=== PATIENT | male | born 1970 | race Caucasian/White ===

== ENCOUNTER 2017-08-23 23:10 | Emergency (ER) | payer BC ==
[2017-08-23 23:16] VITALS: BP 124/70; PULSE 93; TEMP 97.8; BMI 38.0
--- NOTE | 2017-08-23 23:50 | PDOC ---
History of Present Illness - General Chief Complaint: Respiratory Stated Complaint: COLD SYMPTOMS Time Seen by Provider: 08/23/17 23:37 History Source: Patient Exam Limitations: No Limitations - History of Present Illness Initial Comments: 08/24/17 00:21 47-year-old male history of HIV 8 years presents to the emergency department complaining of a nonproductive cough 2 weeks without fever, chills, nausea/ vomiting, headache, dizziness, lightheadedness, visual disturbance, sore throat , difficulty swallowing, facial pain, neck stiffness/pain, back pains, chest pain, shortness of breath, abdominal pains, flank pains, urinary symptoms, ext numbness or tingling sensation. Pt had viral load and CD4 count check and says it was fine. Timing/Duration: reports: other ([id number]) Past History - Past Medical History Allergies/Adverse Reactions: Allergies Allergy/AdvReac Type Severity Reaction Status Date / Time No Known Allergies Allergy Verified 08/23/17 23:15 Home Medications: Ambulatory Orders Atazanavir [Reyataz -] 300 mg PO DAILY@0800 #0 capsule 01/25/12 Abacavir Sulfate/Lamivudine [Epzicom -] 1 tab PO DAILY 11/14/12 Ritonavir [Norvir] 100 mg PO DAILY 11/14/12 Guaifenesin AC [Robitussin AC] 10 ml PO Q4H PRN #100 ml 03/09/15 Albuterol Sulfate Inhaler - [Ventolin HFA Inhaler -] 1 - 2 inh PO Q4H PRN #1 inhaler 09/11/16 Azithromycin 250 mg PO DAILY #4 tablet 09/11/16 Polymyxin B Sulf/Trimethoprim [Polymyxin B-Tmp Eye Drops] 1 ml OP Q4H #1 bottle 09/11/16 Azithromycin [Zithromax -] 250 mg PO UTDICT #6 tab 08/23/17 Anemia: No Asthma: No Cancer: No Cardiac Disorders: No CVA: No COPD: No CHF: No Dementia: No Diabetes: No GI Disorders: No Disorders: No HTN: No Hypercholesterolemia: No Liver Disease: No Seizures: No Thyroid Disease: No - Surgical History Abdominal Surgery: No Appendectomy: No Cardiac Surgery: No Cholecystectomy: No Lung Surgery: No Neurologic Surgery: No Orthopedic Surgery: No - Immunization History Immunization Up to Date: Yes - Suicide/Smoking/Psychosocial Hx Smoking Status: No Smoking History: Never smoked Have you smoked in the past 12 months: No Number of Cigarettes Smoked Daily: 0 Hx Alcohol Use: No Drug/Substance Use Hx: No Substance Use Type: None Hx Substance Use Treatment: No Respiratory Specific PMHX - Complaint Specific PMHX Pneumonia: Yes Review of Systems - Review of Systems Able to Perform ROS?: Yes Comments:: 08/24/17 00:16 CONSTITUTIONAL: Absent: fever, chills, diaphoresis, generalized weakness, malaise, loss of appetite HEENT: Absent: rhinorrhea, nasal congestion, throat pain, throat swelling, difficulty swallowing, mouth swelling, ear pain, eye pain, visual Changes CARDIOVASCULAR: Absent: chest pain, loss of consciousness, palpitations, irregular heart rate, peripheral edema RESPIRATORY: Absent: cough, shortness of breath, dyspnea with exertion, orthopnea, wheezing, stridor, hemoptysis GASTROINTESTINAL: Absent: abdominal pain, abdominal distension, nausea, vomiting, diarrhea, constipation, melena, hematochezia GENITOURINARY: Absent: dysuria, frequency, urgency, hesitancy, hematuria, flank pain, genital pain MUSCULOSKELETAL: Absent: myalgia, arthralgia, joint swelling SKIN: Absent: rash, itching, pallor HEMATOLOGIC/IMMUNOLOGIC: Absent: easy bleeding, easy bruising, lymphadenopathy, frequent infections ENDOCRINE: Absent: unexplained weight gain, unexplained weight loss, heat intolerance, cold intolerance NEUROLOGIC: Absent: headache, focal weakness or paresthesias, dizziness, unsteady gait, seizure, mental status changes, bladder or bowel incontinence PSYCHIATRIC: Absent: anxiety, depression, suicidal or homicidal ideation, hallucinations. Is the patient limited B[place]ian proficient: No *Physical Exam - Vital Signs Last Vital Signs Temp Pulse Resp BP Pulse Ox 97.8 F 93 H 18 124/70 97 08/23/17 23:13 08/23/17 23:13 08/23/17 23:13 08/23/17 23:13 08/23/17 23:13 - Physical Exam Comments: 08/24/17 00:17 GENERAL: Well developed, well nourished. Awake and alert. No acute distress. HEENT: Normocephalic, atraumatic. PERRLA, EOMI. No conjunctival pallor. Sclera are non- icteric. Moist mucous membranes. Oropharynx is clear. NECK: Supple. Full ROM. No JVD. Carotid pulses 2+ and symmetric, without bruits. No thyromegaly. No lymphadenopathy. CARDIOVASCULAR: Regular rate and rhythm. No murmurs, rubs, or gallops. Distal pulses are 2+ and symmetric. PULMONARY: No evidence of respiratory distress. Lungs clear to auscultation bilaterally. No wheezing, rales or rhonchi. ABDOMINAL: Soft. Non-tender. Non-distended. No rebound or guarding. No organomegaly. Normoactive bowel sounds. MUSCULOSKELETAL Normal range of motion at all joints. No bony deformities or tenderness. No CVA tenderness. EXTREMITIES: No cyanosis. No clubbing. No edema. No calf tenderness. SKIN: Warm and dry. Normal capillary refill. No rashes. No jaundice. NEUROLOGICAL: Alert, awake, appropriate. Cranial nerves 2-12 intact. No deficits to light touch and temperature in face, upper extremities and lower extremities. No motor deficits in the in face, upper extremities and lower extremities. Normoreflexic in the upper and lower extremities. Normal speech. Toes are down- going bilaterally. Gait is normal without ataxia. PSYCHIATRIC: Cooperative. Good eye contact. Appropriate mood and affect. ED Treatment Course - RADIOLOGY Radiograph Interpretation: 08/24/17 00:28 CXR 2v NAD compared to 09/11/2016 *DC/Admit/Observation/Transfer Diagnosis at time of Disposition: Bronchitis - Discharge Dispostion Condition at time of disposition: Stable Admit: No - Prescriptions Prescriptions: Azithromycin [Zithromax -] 250 mg PO UTDICT #6 tab - Referrals Referrals: Jeremy Weller MD [Primary Care Provider] - - Patient Instructions Printed Discharge Instructions: DI for Acute Bronchitis Additional Instructions: Increase fluids Rest Robitussin Over the counter Return to the ER for severe/persistent/worsening symptoms - Post Discharge Activity
== END 2017-08-24 00:36 | disposition home or self-care (01) ==
LOC: JER 23:10
DX: J40 Bronchitis, not specified as acute or chronic (principal); Z21 Asymptomatic human immunodeficiency virus [HIV] infection status
CPT/HCPCS: 71020-TC; 99282-25

== ENCOUNTER 2017-12-22 04:09 | Emergency (ER) | payer BC ==
[2017-12-22] MEDS ORDERED: AZITHROMYCIN 250 MG TABLET PO ONE (04:24)
--- NOTE | 2017-12-22 04:24 | PDOC ---
History of Present Illness - General Stated Complaint: COUGH,LOW BACK PAIN Time Seen by Provider: 12/22/17 04:21 History Source: Patient - History of Present Illness Initial Comments: 12/22/17 04:32 Best Contact: Pmhx: HIV since 2008 (sexual transmission) Pshx:N/A Allergies:NKDA 47-year-old male presents to the emergency department complaining of intermittent productive cough with mid back pain 3 days without fever, chills, nausea/vomiting, headache, dizziness, lightheadedness, chest pain, shortness of breath, abdominal pains, flank pains, urinary symptoms. Patient denies exacerbating or alleviating factors. Patient denies taking anything for his cough. Patient's last CD4 count 2 weeks ago and was above 600. Patient has had no complications with his HIV Past History - Past Medical History Allergies/Adverse Reactions: Allergies Allergy/AdvReac Type Severity Reaction Status Date / Time No Known Allergies Allergy Verified 08/23/17 23:15 Home Medications: Ambulatory Orders Atazanavir [Reyataz -] 300 mg PO DAILY@0800 #0 capsule 01/25/12 Abacavir Sulfate/Lamivudine [Epzicom -] 1 tab PO DAILY 11/14/12 Ritonavir [Norvir] 100 mg PO DAILY 11/14/12 Guaifenesin AC [Robitussin AC] 10 ml PO Q4H PRN #100 ml 03/09/15 Albuterol Sulfate Inhaler - [Ventolin HFA Inhaler -] 1 - 2 inh PO Q4H PRN #1 inhaler 09/11/16 Azithromycin 250 mg PO DAILY #4 tablet 09/11/16 Polymyxin B Sulf/Trimethoprim [Polymyxin B-Tmp Eye Drops] 1 ml OP Q4H #1 bottle 09/11/16 Azithromycin [Zithromax -] 250 mg PO UTDICT #6 tab 08/23/17 Anemia: No Asthma: No Cancer: No Cardiac Disorders: No CVA: No COPD: No CHF: No Dementia: No Diabetes: No GI Disorders: No Disorders: No HTN: No Hypercholesterolemia: No Liver Disease: No Seizures: No Thyroid Disease: No - Surgical History Abdominal Surgery: No Appendectomy: No Cardiac Surgery: No Cholecystectomy: No Lung Surgery: No Neurologic Surgery: No Orthopedic Surgery: No - Immunization History Immunization Up to Date: Yes - Suicide/Smoking/Psychosocial Hx Smoking Status: No Smoking History: Never smoked Have you smoked in the past 12 months: No Number of Cigarettes Smoked Daily: 0 Hx Alcohol Use: No Drug/Substance Use Hx: No Substance Use Type: None Hx Substance Use Treatment: No Respiratory Specific PMHX - Complaint Specific PMHX Pneumonia: Yes Review of Systems - Review of Systems Able to Perform ROS?: Yes Comments:: 12/22/17 04:32 CONSTITUTIONAL: Absent: fever, chills, diaphoresis, generalized weakness, malaise, loss of appetite HEENT: Absent: rhinorrhea, nasal congestion, throat pain, throat swelling, difficulty swallowing, mouth swelling, ear pain, eye pain, visual Changes CARDIOVASCULAR: Absent: chest pain, loss of consciousness, palpitations, irregular heart rate, peripheral edema RESPIRATORY: +cough Absent: shortness of breath, dyspnea with exertion, orthopnea, wheezing, stridor , hemoptysis GASTROINTESTINAL: Absent: abdominal pain, abdominal distension, nausea, vomiting, diarrhea, constipation, melena, hematochezia GENITOURINARY: Absent: dysuria, frequency, urgency, hesitancy, hematuria, flank pain, genital pain MUSCULOSKELETAL: Absent: myalgia, arthralgia, joint swelling SKIN: Absent: rash, itching, pallor HEMATOLOGIC/IMMUNOLOGIC: Absent: easy bleeding, easy bruising, lymphadenopathy, frequent infections ENDOCRINE: Absent: unexplained weight gain, unexplained weight loss, heat intolerance, cold intolerance NEUROLOGIC: Absent: headache, focal weakness or paresthesias, dizziness, unsteady gait, seizure, mental status changes, bladder or bowel incontinence PSYCHIATRIC: Absent: anxiety, depression, suicidal or homicidal ideation, hallucinations. Is the patient limited Panamanian proficient: No *Physical Exam - Physical Exam Comments: 12/22/17 04:31 GENERAL: Well developed, well nourished. Awake and alert. No acute distress. HEENT: Normocephalic, atraumatic. PERRLA, EOMI. No conjunctival pallor. Sclera are non- icteric. Moist mucous membranes. Oropharynx is clear. NECK: Supple. Full ROM. No JVD. Carotid pulses 2+ and symmetric, without bruits. No thyromegaly. No lymphadenopathy. CARDIOVASCULAR: Regular rate and rhythm. No murmurs, rubs, or gallops. Distal pulses are 2+ and symmetric. PULMONARY: No evidence of respiratory distress. Lungs clear to auscultation bilaterally. No wheezing, rales or rhonchi. ABDOMINAL: Soft. Non-tender. Non-distended. No rebound or guarding. No organomegaly. Normoactive bowel sounds. MUSCULOSKELETAL Normal range of motion at all joints. No bony deformities or tenderness. No CVA tenderness. EXTREMITIES: No cyanosis. No clubbing. No edema. No calf tenderness. SKIN: Warm and dry. Normal capillary refill. No rashes. No jaundice. ED Treatment Course - RADIOLOGY Radiograph Interpretation: 12/22/17 04:36 [employer]ICE 2v NAD *DC/Admit/Observation/Transfer Diagnosis at time of Disposition: Acute bronchitis Qualifiers: Bronchitis organism: unspecified organism Qualified Code(s): J20.9 - Acute bronchitis, unspecified - Discharge Dispostion Condition at time of disposition: Stable Admit: No - Referrals Referrals: Jeremy Maria MD [Primary Care Provider] - - Patient Instructions Printed Discharge Instructions: DI for Acute Bronchitis Additional Instructions: Rest Tylenol alternating with Motrin as needed every 6 hours [id number] supportive care/example: Robitussin or Mucinex Zithromax prescription until completion Follow up with your physician within 48 hours Return back to the emergency department for severe/persistent/worsening or concerning symptoms - Post Discharge Activity
[2017-12-22] MEDS ORDERED: AZITHROMYCIN 500 MG TABLET ONE (04:42)
[2017-12-22 06:12] VITALS: BP 122/85; PULSE 81; TEMP 98.7; BMI 37.6
[2017-12-25] MEDS ORDERED: IBUPROFEN 600 MG TABLET (FP) PO ONE (17:51)
== END 2017-12-22 05:40 | disposition home or self-care (01) ==
LOC: JER 04:09
DX: J20.9 Acute bronchitis, unspecified (principal); Z21 Asymptomatic human immunodeficiency virus [HIV] infection status
CPT/HCPCS: 71046-TC-FY; 99282-25

== ENCOUNTER 2018-09-30 22:57 | Emergency (ER) | payer BC ==
[2018-09-30 23:21] VITALS: BP 114/69; PULSE 87; TEMP 98.2; BMI 38.0
--- NOTE | 2018-10-01 02:34 | PDOC ---
History of Present Illness - General Chief Complaint: Cold Symptoms Stated Complaint: COUGH Time Seen by Provider: 10/01/18 01:13 History Source: Patient Exam Limitations: No Limitations - History of Present Illness Timing/Duration: reports: week Severity: reports: moderate Possible Cause: Yes: occasional episodes Associated Symptoms: reports: cough, nasal congestion Past History - Past Medical History Allergies/Adverse Reactions: Allergies Allergy/AdvReac Type Severity Reaction Status Date / Time No Known Allergies Allergy Verified 09/30/18 23:21 Home Medications: Ambulatory Orders Atazanavir [Reyataz -] 300 mg PO DAILY@0800 #0 capsule 01/25/12 Abacavir Sulfate/Lamivudine [Epzicom -] 1 tab PO DAILY 11/14/12 Ritonavir [Norvir] 100 mg PO DAILY 11/14/12 Albuterol Sulfate Inhaler - [Ventolin HFA Inhaler -] 1 - 2 inh PO Q4H PRN #1 inhaler 09/11/16 Anemia: No Asthma: No Cancer: No Cardiac Disorders: No CVA: No COPD: No CHF: No Dementia: No Diabetes: No GI Disorders: No Disorders: No HTN: No Hypercholesterolemia: No Liver Disease: No Seizures: No Thyroid Disease: No - Surgical History Abdominal Surgery: No Appendectomy: No Cardiac Surgery: No Cholecystectomy: No Lung Surgery: No Neurologic Surgery: No Orthopedic Surgery: No - Immunization History Immunization Up to Date: Yes - Suicide/Smoking/Psychosocial Hx Smoking Status: No Smoking History: Never smoked Have you smoked in the past 12 months: No Number of Cigarettes Smoked Daily: 0 Information on smoking cessation initiated: No Hx Alcohol Use: No Drug/Substance Use Hx: No Substance Use Type: None Hx Substance Use Treatment: No Respiratory Specific PMHX - Complaint Specific PMHX Pneumonia: Yes Review of Systems - Review of Systems Able to Perform ROS?: Yes Is the patient limited [place]an proficient: No Constitutional: No: Symptoms Reported, See HPI, Chills, Diaphoresis, Fever, Loss of Appetite, Malaise, Night Sweats, Weakness, Weight Stable, Unintentional Wgt. Loss, Unexplained wgt Loss, Other HEENTM: Yes: Nose Congestion Respiratory: Yes: Cough Cardiac (ROS): No: Symptoms Reported, See HPI, Chest Pain, Edema, Irregular Heart Rate, Lightheadedness, Palpitations, Syncope, Chest Tightness, Other ABD/GI: No: Symptoms Reported, See HPI, Abdominal Distended, Abd. Pain w/ defecation, Blood Streaked Bowels, Constipated, Diarrhea, Difficulty Swallowing , Nausea, Poor Appetite, Poor Fluid Intake, Rectal Bleeding, Vomiting, Indigestion, Abdominal cramping, Tarry Stools, Other : No: Symptoms Reported, See HPI, Burning, Dysuria, Discharge, Frequency, Flank Pain, Hematuria, Incontinence, Pain, Urgency, Testicular Mass, Testicular Swelling, Lesions, Testicular Pain, Other Musculoskeletal: Yes: Other (chest wall pian) Integumentary: No: Symptoms Reported, See HPI, Bruising, Change in Color, Change in Hair/Nails, Dryness, Erythema, Flushing, Lesions, Lumps, Pallor, Pruritus, Rash, Sweating, Other Neurological: No: Symptoms reported, See HPI, Headache, Numbness, Paresthesia, Pre-Existing Deficit, Seizure, Tingling, Tremors, Weakness, Unsteady Gait, Ataxia, Dizziness, Other Psychiatric: No: Anxiety, Depression, Frequent Crying, Stressors, Sleep Pattern Change, Emotional Problems, Mood Swings, Change in Appetite, Other Endocrine: No: Symptoms Reported, See HPI, Excessive Sweating, Flushing, Intolerance to Cold, Intolerance to Heat, Increased Hunger, Increased Thirst, Increased Urine, Unexplained Weight Gain, Unexplained Weight Loss, Change in Weight, Other Hematologic/Lymphatic: No: Symptoms Reported, See HPI, Anemia, Blood Clots, Easy Bleeding, Easy Bruising, Bleeding Diathesis, Lymph Node Abnormalities, Swollen Glands, Other *Physical Exam - Vital Signs Last Vital Signs Temp Pulse Resp BP Pulse Ox 98.2 F 87 18 114/69 100 09/30/18 23:19 09/30/18 23:19 09/30/18 23:19 09/30/18 23:19 09/30/18 23:19 - Physical Exam General Appearance: Yes: Nourished, Appropriately Dressed HEENT: positive: Nasal Congestion, Rhinorrhea Neck: positive: Supple Respiratory/Chest: positive: Lungs Clear Cardiovascular: positive: Regular Rhythm, Regular Rate Gastrointestinal/Abdominal: positive: Soft Musculoskeletal: positive: Normal Inspection Extremity: positive: Normal Inspection, Normal Range of Motion Integumentary: positive: Normal Color, Warm Neurologic: positive: Fully Oriented, Alert, Motor Strength 5/5 Moderate Sedation - Procedure Monitoring Vital Signs: Procedure Monitoring Vital Signs Temperature 98.2 F 09/30/18 23:19 Pulse Rate 87 09/30/18 23:19 Respiratory Rate 18 09/30/18 23:19 Blood Pressure 114/69 09/30/18 23:19 O2 Sat by Pulse Oximetry (%) 100 09/30/18 23:19 Medical Decision Making - Medical Decision Making 10/01/18 02:47 48-year-old male presents with complaint of 1 week of coughing, nasal congestion. He denies any significant past medical history He has stable vital signs. He is not febrile, he is not hypoxic On exam, he has no wheezing and is not in any acute respiratory distress. Differential includes influenza, pneumonia, bronchitis, viral syndrome-common cold cxr ,flu swab pending 10/01/18 02:55 *DC/Admit/Observation/Transfer - Referrals Referrals: Jeremy Weller MD [Primary Care Provider] - - Patient Instructions - Post Discharge Activity
--- NOTE | 2018-10-01 06:11 | PDOC ---
*Physical Exam - Vital Signs Last Vital Signs Temp Pulse Resp BP Pulse Ox 98.2 F 87 18 114/69 100 09/30/18 23:19 09/30/18 23:19 09/30/18 23:19 09/30/18 23:19 09/30/18 23:19 Medical Decision Making - Medical Decision Making 10/01/18 06:07 Care received at [address] Westfall Pt pending flu swab, CXR Flu swab negative. CXR clear On reassessement, pt comfortable, reading on his phone in NAD Lungs clear Likely bronchitis Pt to f/u with PMD within 1-2 days REturn precautions given I discussed the physical exam findings, ancillary test results and final diagnoses with the patient. I answered all of the patient's questions. The patient was satisfied with the care received and felt comfortable with the discharge plan and treatment plan. The patient will call their primary care physician within 24 hours to arrange follow-up and will return to the Emergency Department with any new, persistent or worsening symptoms. *DC/Admit/Observation/Transfer Diagnosis at time of Disposition: Cough, Bronchitis, Acute bronchitis - Discharge Dispostion Disposition: HOME Condition at time of disposition: Stable Decision to Admit order: No - Referrals Referrals: Jeremy Weller MD [Primary Care Provider] - - Patient Instructions Printed Discharge Instructions: DI for Viral Upper Respiratory Infection -- Adult Additional Instructions: As discussed, follow up with your primary care doctor within 1-2 days Return to the emergency department if you have any new, worsening, or concerning symptoms. - Post Discharge Activity - Attestations Physician Attestion: 10/01/18 06:11 I, Dr. Carlos Bustillos MD, attest that this document has been prepared under my direction and personally reviewed by me in its entirety. I further attest, that it accurately reflects all work, treatment, procedures and medical decision -making performed by me.
== END 2018-10-01 06:40 | disposition home or self-care (01) ==
LOC: JER 22:57
DX: J20.9 Acute bronchitis, unspecified (principal)
CPT/HCPCS: 71046-TC-FY; 87804; 99282-25

== ENCOUNTER 2018-11-11 02:51 | Emergency (ER) | payer BC ==
[2018-11-11 03:07] VITALS: BP 130/79; PULSE 58; TEMP 97.7; BMI 38.0
--- NOTE | 2018-11-11 03:15 | PDOC ---
Attending Attestation - Resident Resident Name: James Mccoy - ED Attending Attestation I have performed the following: I have examined & evaluated the patient, The case was reviewed & discussed with the resident, I agree w/resident's findings & plan - HPI HPI: 11/11/18 03:28 48-year-old male with cough intermittently for several weeks Patient denies history of tobacco use. He was seen for the same in September with negative influenza swabs. Chest x-ray showed no acute disease at that time. He denies leg swelling fever chest pain back pain or trauma. He states that the cough kept him from sleeping which is why he came in this evening. - Physicial Exam PE: 11/11/18 03:29 GENERAL: Awake, in no acute distress HEAD: No signs of trauma EYES: ENT:clear without exudates. Moist mucosa NECK: Normal ROM, LUNGS:. Normal work of breathing. HEART: Regular rate and rhythm, ABDOMEN: Soft, nondistended CHEST WALL: BACK: No midline tenderness. EXTREMITIES:. No erythema, or tenderness NEUROLOGICAL: Alert, SKIN: Warm, Dry - Medical Decision Making 11/11/18 03:29 48-year-old HIV positive male with cough Plan for repeat chest x-ray, EKG and DuoNeb Reevaluation with likely discharged home in improved Patient will be given instructions to follow up with his primary care physician , he was advised that he may need a pulmonary evaluation as well.
[2018-11-11] MEDS ORDERED: ALBUTEROL SO4 2.5/IPRATROPIUM 0.5 INH SOL 3 ML VIAL.NEB. NEB ONE ×2 (03:28→03:46)
--- NOTE | 2018-11-11 03:30 | PDOC ---
History of Present Illness - General Chief Complaint: Respiratory Stated Complaint: COUGH Time Seen by Provider: 11/11/18 03:08 History Source: Patient Exam Limitations: No Limitations - History of Present Illness Initial Comments: 11/11/18 03:30 48 yo male pmh HIV (last CD4 700s, viral load unknown, currently on medication) presents to the ED for a cough. Of note pt seen in the ED 10/01/2018 for the same complaint, workup neg for Influenza, neg CXR for Pneumonia and DC home with improvement on OTC cough suppressants. Current cough is intermittent over the last 3 days, productive of clear sputum or improvement after OTC cough medication. Pt has not seen PCP for cough. Denies F/C/N/V, sick contacts, recent travel, hx of smoking, leg swelling/pain, PADILLA, ear pain/discharge. Past History - Past Medical History Allergies/Adverse Reactions: Allergies Allergy/AdvReac Type Severity Reaction Status Date / Time No Known Allergies Allergy Verified 11/11/18 03:03 Home Medications: Ambulatory Orders Atazanavir [Reyataz -] 300 mg PO DAILY@0800 #0 capsule 01/25/12 Abacavir Sulfate/Lamivudine [Epzicom -] 1 tab PO DAILY 11/14/12 Ritonavir [Norvir] 100 mg PO DAILY 11/14/12 Albuterol Sulfate Inhaler - [Ventolin HFA Inhaler -] 1 - 2 inh PO Q4H PRN #1 inhaler 09/11/16 Benzonatate [Tessalon Pearls -] 100 mg PO TID #21 capsule 11/11/18 Anemia: No Asthma: No Cancer: No Cardiac Disorders: No CVA: No COPD: No CHF: No Dementia: No Diabetes: No GI Disorders: No Disorders: No HTN: No Hypercholesterolemia: No Liver Disease: No Seizures: No Thyroid Disease: No - Surgical History Abdominal Surgery: No Appendectomy: No Cardiac Surgery: No Cholecystectomy: No Lung Surgery: No Neurologic Surgery: No Orthopedic Surgery: No - Immunization History Immunization Up to Date: Yes - Suicide/Smoking/Psychosocial Hx Smoking Status: No Smoking History: Never smoked Have you smoked in the past 12 months: No Number of Cigarettes Smoked Daily: 0 Hx Alcohol Use: No Drug/Substance Use Hx: No Substance Use Type: None Hx Substance Use Treatment: No Review of Systems - Review of Systems Constitutional: No: Chills, Fever HEENTM: No: Ear Pain, Ear Discharge, Nose Congestion, Difficulty Swallowing Respiratory: Yes: Productive cough (clear sputum). No: Shortness of Breath Cardiac (ROS): No: Chest Pain ABD/GI: No: Constipated, Diarrhea, Nausea, Vomiting : No: Burning, Dysuria Musculoskeletal: No: Back Pain Neurological: No: Headache, Numbness, Paresthesia *Physical Exam - Vital Signs Last Vital Signs Temp Pulse Resp BP Pulse Ox 97.7 F 58 L 18 130/79 96 11/11/18 03:01 11/11/18 03:01 11/11/18 03:01 11/11/18 03:01 11/11/18 03:01 - Physical Exam General Appearance: Yes: Nourished, Appropriately Dressed. No: Apparent Distress (sitting up in bed on phone) HEENT: positive: EOMI, Normal Voice. negative: Scleral Icterus (R), Scleral Icterus (L), Tonsillar Exudate, Rhinorrhea Neck: positive: Supple. negative: Lymphadenopathy (R), Lymphadenopathy (L) Respiratory/Chest: positive: Lungs Clear, Normal Breath Sounds. negative: Crackles, Stridor, Wheezing Cardiovascular: positive: Regular Rhythm, Regular Rate, S1, S2. negative: Edema , JVD, Murmur Vascular Pulses: Dorsalis-Pedis (R): 3+, Doralis-Pedis (L): 3+ Gastrointestinal/Abdominal: positive: Flat, Soft. negative: Distended, Guarding , Rebound, Tenderness Extremity: positive: Normal Capillary Refill, Normal Inspection Integumentary: positive: Normal Color, Dry, Warm Neurologic: positive: Fully Oriented, Alert, Normal Mood/Affect, Normal Response Moderate Sedation - Procedure Monitoring Vital Signs: Procedure Monitoring Vital Signs Temperature 97.7 F 11/11/18 03:01 Pulse Rate 58 L 11/11/18 03:01 Respiratory Rate 18 11/11/18 03:01 Blood Pressure 130/79 11/11/18 03:01 O2 Sat by Pulse Oximetry (%) 96 11/11/18 03:01 Medical Decision Making - Medical Decision Making 11/11/18 03:49 48 yo male pmh HIV presents with chronic intermittent cough, neg work up 1 month ago. NAD AOX3, sitting up in bed on phone no resp distress Due to length of time of s/s, duoneb ordered, CXR and EKG EKG NSR, no ST changes CXR no acute path or changes Pt feeling much better after treatment. DC home with PCP follow up and cough suppressant sent to pharmacy *DC/Admit/Observation/Transfer Diagnosis at time of Disposition: Cough - Discharge Dispostion Disposition: HOME Condition at time of disposition: Stable Decision to Admit order: No - Prescriptions Prescriptions: Benzonatate [Tessalon Pearls -] 100 mg PO TID #21 capsule - Referrals Referrals: Jeremy Weller MD [Primary Care Provider] - - Patient Instructions Printed Discharge Instructions: DI for Chronic Bronchitis Additional Instructions: Please make an appointment with your primary care provider and see them within the next 48. Take your home dosed medications as prescribed. Continue taking over the counter medication for cough suppression along with the medication sent to your pharmacy as prescribed. Return to the ER for difficulty breathing, coughing up blood, severe chest pain, inability to drink or eat. Thank you - Post Discharge Activity
--- NOTE | 2018-11-11 11:52 | EKG ---
Test Reason : Blood Pressure : / mmHG Vent. Rate : 077 BPM Atrial Rate : 077 BPM P-R Int : 148 ms QRS Dur : 096 ms QT Int : 382 ms P-R-T Axes : 052 018 034 degrees QTc Int : 432 ms NORMAL SINUS RHYTHM NORMAL ECG WHEN COMPARED WITH ECG OF 28-DEC-2014 16:46, NO SIGNIFICANT CHANGE WAS FOUND Confirmed by MD MIMI, BARAK ([id number]) on 11/11/2018 11:51:40 AM Referred By: Confirmed By:BARAK LE MD
== END 2018-11-11 05:06 | disposition home or self-care (01) ==
LOC: JER 02:51
PROC: 3E0F7GC Introduction of Other Therapeutic Substance into Respiratory Tract, Via Natural or Artificial Opening (ICD-10-PCS; principal; 2018-11-11)
DX: J40 Bronchitis, not specified as acute or chronic (principal); Z21 Asymptomatic human immunodeficiency virus [HIV] infection status
CPT/HCPCS: 71046-TC-FY; 93005; 93010; 99281-25

== ENCOUNTER 2019-03-03 12:58 | Observation (INO) | payer BC ==
--- NOTE | 2019-03-03 13:07 | PDOC ---
Rapid Medical Evaluation Time Seen by Provider: 03/03/19 13:02 Medical Evaluation: Allergies Allergy/AdvReac Type Severity Reaction Status Date / Time No Known Allergies Allergy Verified 11/11/18 03:03 03/03/19 13:06 I have performed a brief in-person evaluation of this patient. The patient presents with a chief complaint of: syncope with jaw pain Pertinent physical exam findings: laceration to occipt I have ordered the following: cardiac w/u The patient will proceed to the ED for further evaluation. Discharge Disposition - Diagnosis Syncope and collapse - Referrals - Patient Instructions - Post Discharge Activity
--- NOTE | 2019-03-03 13:52 | PDOC ---
History of Present Illness - General Chief Complaint: Syncope/Near Syncope Stated Complaint: FALL/HEAD INJURY Time Seen by Provider: 03/03/19 13:02 History Source: Patient Exam Limitations: No Limitations - History of Present Illness Initial Comments: 03/03/19 14:06 48 year old male with PMH HIV (Last viral load 700s, undetectable) presented to ED for syncopal episode today. Pt stated he was standing, laughing when he felt lightheaded and lost consciousness, causing him to fall to the ground and hit his head. Pt complained of posterior headache, left sided jaw pain. Pt denied chest pain, shortness of breath, abdominal pain, nausea, vomiting, diarrhea. Allergies: NKDA Past History - Past Medical History Allergies/Adverse Reactions: Allergies Allergy/AdvReac Type Severity Reaction Status Date / Time No Known Allergies Allergy Verified 03/03/19 15:03 Home Medications: Ambulatory Orders Atazanavir [Reyataz -] 300 mg PO DAILY@0800 #0 capsule 01/25/12 Abacavir Sulfate/Lamivudine [Epzicom -] 1 tab PO DAILY 11/14/12 Ritonavir [Norvir] 100 mg PO DAILY 11/14/12 Anemia: No Asthma: No Cancer: No Cardiac Disorders: No CVA: No COPD: No CHF: No Dementia: No Diabetes: No GI Disorders: No Disorders: No HTN: No Hypercholesterolemia: No Liver Disease: No Seizures: No Thyroid Disease: No - Surgical History Abdominal Surgery: No Appendectomy: No Cardiac Surgery: No Cholecystectomy: No Lung Surgery: No Neurologic Surgery: No Orthopedic Surgery: No - Immunization History Immunization Up to Date: Yes - Suicide/Smoking/Psychosocial Hx Smoking Status: No Smoking History: Never smoked Have you smoked in the past 12 months: No Number of Cigarettes Smoked Daily: 0 Information on smoking cessation initiated: No Hx Alcohol Use: No Drug/Substance Use Hx: No Substance Use Type: None Hx Substance Use Treatment: No Review of Systems - Review of Systems Able to Perform ROS?: Yes Comments:: 03/03/19 14:07 General: denied fever, chills, generalized weakness. HEENT: admitted to left jaw pain. denied sore throat, rhinorrhea, ear pain. Heart: admitted to syncope. denied chest pain, palpitations, diaphoresis. Respiratory: denied shortness of breath, cough, sputum production, hemoptysis. Abdomen: denied abdominal pain, nausea, vomiting, diarrhea, constipation, blood in stool. : denied dysuria, increased urinary frequency, hematuria, urinary incontinence , flank pain. Back: denied back pain. Musculoskeletal: denied joint pain, muscle pain, joint swelling. Neurological: admitted to headache. denied dizziness, numbness, tingling, weakness. Skin: denied rash, laceration, abrasion. *Physical Exam - Vital Signs Last Vital Signs Temp Pulse Resp BP Pulse Ox 98.2 F 89 18 129/90 97 03/03/19 13:04 03/03/19 13:04 03/03/19 13:04 03/03/19 13:04 03/03/19 13:04 - Physical Exam Comments: 03/03/19 14:08 Constitutional: Well-nourished, Well-developed, appearing stated age. HEENT: head is normocephalic. small scalp hematoma to posteiror head with abrasion, no laceration. EOMI. PERRLA. no tenderness to palpation of facial bones or jaw bilaterally. no jaw deformity. no raccoon eyes. Neck: supple. Full ROM. Heart: regular rhythm. no murmurs, rubs or gallops. Lungs: clear to auscultation bilaterally. no crackles, rhonchi or wheezing. no stridor. Abdomen: soft, nontender. normal bowel sounds. no rebound, guarding, masses. Extremities: peripheral pulses intact. no lower extremity edema. Neurological: CN 2-12 grossly intact. moves all four extremities. Psych: awake, alert, oriented x3. follows commands. answers questions appropriately. ED Treatment Course - LABORATORY CBC & Chemistry Diagram: 03/03/19 13:00 03/03/19 13:00 Medical Decision Making - Medical Decision Making 03/03/19 14:09 48 year old male with above PMH presented to ED for syncopal fall with head injury. Initial Vital Signs Temp Pulse Resp BP Pulse Ox 98.2 F 89 18 129/90 97 03/03/19 13:04 03/03/19 13:04 03/03/19 13:04 03/03/19 13:04 03/03/19 13:04 Afebrile. No tachycardia. No tachypnea. No hypotension. No hypoxia on room air. Labs ordered: CBC, CMP, troponin Imaging ordered: CT head noncon, CT cervical spine noncon, CT facial bones noncon Medications ordered: normal saline bolus 1000 cc, tylenol IV EKG performed at 1300: rate 71, regular rhythm, normal axis, normal intervals, no acute ST changes. 03/03/19 14:50 CBC WBC 9.9 K/mm3 (4.0-10.0) 03/03/19 13:00 RBC 5.09 M/mm3 (4.00-5.60) 03/03/19 13:00 Hgb 15.2 GM/dL (11.7-16.9) 03/03/19 13:00 Hct 44.8 % (35.4-49) 03/03/19 13:00 MCV 88.1 fl (80-96) 03/03/19 13:00 MCH 30.0 pg (25.7-33.7) 03/03/19 13:00 MCHC 34.0 g/dl (32.0-35.9) 03/03/19 13:00 RDW 13.1 % (11.9-15.9) 03/03/19 13:00 Plt Count 220 K/MM3 (134-434) 03/03/19 13:00 MPV 8.5 fl (7.5-11.1) 03/03/19 13:00 Absolute Neuts (auto) 7.7 K/mm3 (1.5-8.0) 03/03/19 13:00 Neutrophils % 77.7 % (42.8-82.8) D 03/03/19 13:00 Lymphocytes % 14.9 % (8-40) D 03/03/19 13:00 Monocytes % 6.0 % (3.8-10.2) 03/03/19 13:00 Eosinophils % 1.0 % (0-4.5) 03/03/19 13:00 Basophils % 0.4 % (0-2.0) 03/03/19 13:00 Nucleated RBC % 0 % (0-0) 03/03/19 13:00 No anemia. No leukocytosis. CMP Sodium 139 mmol/L (136-145) 03/03/19 13:00 Potassium 4.0 mmol/L (3.5-5.1) 03/03/19 13:00 Chloride 109 mmol/L (98-107) H 03/03/19 13:00 Carbon Dioxide 25 mmol/L (21-32) 03/03/19 13:00 Anion Gap 6 MMOL/L (8-16) L 03/03/19 13:00 BUN 17.8 mg/dL (7-18) 03/03/19 13:00 Creatinine 1.0 mg/dL (0.55-1.3) 03/03/19 13:00 Est GFR (CKD-EPI)AfAm 103.42 03/03/19 13:00 Est GFR (CKD-EPI)NonAf 89.23 03/03/19 13:00 Random Glucose 102 mg/dL (74-106) 03/03/19 13:00 Calcium 8.7 mg/dL (8.5-10.1) 03/03/19 13:00 Magnesium 2.4 mg/dL (1.8-2.4) 03/03/19 13:00 Total Bilirubin 1.5 mg/dL (0.2-1) H 03/03/19 13:00 AST 23 U/L (15-37) 03/03/19 13:00 ALT 37 U/L (13-61) 03/03/19 13:00 Alkaline Phosphatase 142 U/L (45-117) H 03/03/19 13:00 Creatine Kinase 417 U/L (26-308) H 03/03/19 13:00 Troponin I < 0.02 ng/ml (0.00-0.05) 03/03/19 13:00 Total Protein 7.6 g/dl (6.4-8.2) 03/03/19 13:00 Albumin 4.0 g/dl (3.4-5.0) 03/03/19 13:00 No electrolyte abnormalities. No ARABELLA. Troponin undetectable. CK mildly elevated. 03/03/19 15:31 CT head/cervical spine/facial bones report: Status post head injury. Syncope. Status post fall. CT scan of the brain without intravenous contrast. The ventricles and basal cisterns appear unremarkable. No mass lesion, gross acute infarct or intracranial hemorrhage are identified. There is no shift of the midline structures. Normal size pituitary gland. The craniocervical junction appears unremarkable. Visualized paranasal sinuses and left mastoid air cells are well aerated. The right mastoid air cells are under aerated relative to the left with sclerotic changes and without gross evidence of effusion. The calvarium is intact. Impression: No evidence of a focal intracranial lesion or hemorrhage seen. Right mastoid air cells are under aerated relative to the left with sclerotic changes that may be on the basis of chronic mastoiditis without evidence of right mastoid effusion. CT scan of the facial bones without intravenous contrast. Coronal and sagittal reconstruction images were obtained. No gross fracture is identified. Both orbits are intact . Both psychometric arches are intact. Both eye globes appear unremarkable. No retrobulbar abnormal attenuation is identified. Swelling along superior margin of the right orbit. Bilateral upper neck and submandibular subcentimeter lymph nodes are present which are nonspecific sclerotic changes in the right mastoid air cells again noted. IMPRESSION: No gross fracture is identified. Both orbits appear intact. Mild soft tissue swelling along superior margin of the right orbit and the forehead. Sclerotic changes in the right mastoid air cells that may be on the basis of chronic mastoiditis without evidence of mastoid effusion CT scan of the cervical spine without intravenous contrast Coronal and sagittal reconstruction images were obtained. There is straightening of the cervical spine. No gross fracture, subluxation or prevertebral soft tissue swelling is seen. Visualized portion of the airway appears unremarkable. No gross enlarged lymph nodes are identified. Lung windows at the thoracic inlet appear unremarkable. IMPRESSION: Straightening of the cervical spine. The alignment is satisfactory. No gross fracture or subluxation is seen. Correlate clinically to determine further evaluation and follow-up. Reported By: Gege Vela MD 03/03/19 1510 Pt to be admitted to Dr. Weller - tele/obs for syncope. 03/03/19 15:[address] Weller, who advised admission. Pending admission tele/obs. 03/03/19 16:14 CXR report: Comparison: 11/11/2018. Frontal and lateral views of the chest reveal a normal sized heart with normal vascularity. The lung wei are clear without evidence of mass or infiltrate. The costophrenic sulci are clear. The mediastinal, osseous and soft tissue structures as visualized are normal. IMPRESSION: Normal chest films. Reported By: Jonathan Zapata MD 03/03/19 [id number] *DC/Admit/Observation/Transfer Diagnosis at time of Disposition: Syncope and collapse - Discharge Dispostion Condition at time of disposition: Stable Decision to Admit order: Yes - Referrals - Patient Instructions - Post Discharge Activity
[2019-03-03] MEDS ORDERED: SODIUM CHLORIDE 1,000 ML IV STA (14:10)
[2019-03-03] MEDS ORDERED: ACETAMINOPHEN 1000 MG/100 ML VIAL (NON FORMULARY) IVPB ONE (14:10)
[2019-03-03 14:38] LABS: ALK PHOS 142 U/L (45-117); ANION GAP 6 MMOL/L (8-16); BILIRUBIN,TOTAL 1.5 mg/dL (0.2-1); BLOOD UREA NITROGEN 17.8 mg/dL (7-18); CALCIUM 8.7 mg/dL (8.5-10.1); CHLORIDE 109 mmol/L (98-107); CO2 25 mmol/L (21-32); GLUCOSE,RANDOM 102 mg/dL (74-106); MAGNESIUM 2.4 mg/dL (1.8-2.4); SGOT/AST 23 U/L (15-37); SGPT/ALT 37 U/L (13-61); SODIUM 139 mmol/L (136-145); TOT PROT 7.6 g/dl (6.4-8.2)
[2019-03-03] MEDS ORDERED: ACETAMINOPHEN INJECTION 100 ML IVPB ONE (14:41)
[2019-03-03 14:43] LABS: BASO % 0.4 % (0-2.0); HEMATOCRIT 44.8 % (35.4-49); HEMOGLOBIN 15.2 GM/dL (11.7-16.9); LYMPH % 14.9 % (8-40); MEAN CELL VOLUME 88.1 fl (80-96); MEAN PLT VOLUME 8.5 fl (7.5-11.1); NEUT % 77.7 % (42.8-82.8); PLATELET COUNT 220 K/MM3 (134-434); RBC 5.09 M/mm3 (4.00-5.60); RDW 13.1 % (11.9-15.9); WHITE BLOOD COUNT 9.9 K/mm3 (4.0-10.0)
[2019-03-03 15:04] LABS: URINE APPEARANCE CLEAR; URINE BILIRUBIN NEGATIVE (NEGATIVE); URINE COLOR YELLOW; URINE GLUCOSE (UA) NEGATIVE (NEGATIVE); URINE KETONE NEGATIVE (NEGATIVE); URINE LEUK ESTERASE NEGATIVE (NEGATIVE); URINE NITRITE NEGATIVE (NEGATIVE); URINE PROTEIN NEGATIVE (NEGATIVE); URINE UROBILINOGEN 0.2 mg/dL (0.2-1.0)
[2019-03-03 15:11] LABS: INR 0.98 (0.83-1.09); PROTHROMBIN TIME (PATIENT) 11.6 SEC (9.7-13.0)
--- NOTE | 2019-03-03 15:45 | PDOC ---
Documentation entered by Kim Forman SCRIBE, acting as scribe for Carlos Bustillos MD. Carlos Bustillos MD: This documentation has been prepared by the scribe, Kim Forman SCRIBE, under my direction and personally reviewed by me in its entirety. I confirm that the documentation accurately reflects all work, treatment, procedures, and medical decision making performed by me. Attending Attestation - Resident Resident Name: NydiaTwyla - ED Attending Attestation I have performed the following: I have examined & evaluated the patient, The case was reviewed & discussed with the resident, I agree w/resident's findings & plan, Exceptions are as noted - HPI HPI: 03/03/19 14:36 The patient is a 48-year-old male, with a past medical history of HIV (last viral load in the 700s, undetectable), who presents to the ED s/p syncopal episode while at work today. Patient states that he was laughing when he suddenly became lightheaded for 1 second and passed out. He does not recall passing out. He is now complaining of a posterior headache and LT jaw pain. He denies experiencing chest pain or shortness of breath before the incident. He denies having any other symptoms. - Physicial Exam PE: 03/03/19 14:45 agree with resident exam - Medical Decision Making 03/03/19 15:[address] Toro with normal cardiac echo, negative FAST and normal caliber aorta 03/03/19 15:54 48yo M presents to the ED with drop syncope, jaw pain and headache +abrasion to head after cleanout, no lac to repair. tdap up to date trauma w/u negative Pt admitted to Dr. Facundo Weller Case discussed in detail with admitting physician including history, physical exam and ancillary studies. Admitting physician has assumed care for the patient, will follow all pending diagnostics and will complete the evaluation and treatment.
--- NOTE | 2019-03-03 16:27 | HP ---
Admitting History and Physical - Primary Care Physician PCP: Jeremy Weller - Admission Chief Complaint: syncope History of Present Illness: Pt with witnessed syncope while was laughing. Pt hit his head when fell.. Pt with past episode of dizziness episode associated with laughing, no syncope. History Source: Patient Limitations to Obtaining History: No Limitations - Past Medical History Infectious Disease: Yes: HIV - Smoking History Smoking history: Never smoked Have you smoked in the past 12 months: No Aproximately how many cigarettes per day: 0 - Alcohol/Substance Use Hx Alcohol Use: No - Social History Usual Living Arrangement: Yes: With Spouse Home Medications - Allergies Allergies/Adverse Reactions: Allergies Allergy/AdvReac Type Severity Reaction Status Date / Time No Known Allergies Allergy Verified 03/03/19 15:03 - Home Medications Home Medications: Ambulatory Orders Atazanavir [Reyataz -] 300 mg PO DAILY@0800 #0 capsule 01/25/12 Abacavir Sulfate/Lamivudine [Epzicom -] 1 tab PO DAILY 11/14/12 Ritonavir [Norvir] 100 mg PO DAILY 11/14/12 Review of Systems - Review of Systems Constitutional: denies: Chills, Fever Eyes: denies: Blind Spots, Blurred Vision, Double Vision, Photophobia HENT: denies: Difficult Swallowing, Ear Discharge, Ear Pain, Epistaxis, Nasal Congestion, Throat Pain Neck: denies: Pain on Movement, Stiffness, Tenderness Cardiovascular: denies: Chest Pain, Edema, Palpitations Respiratory: denies: Cough, SOB, SOB on Exertion, Wheezing Gastrointestinal: denies: Abdominal Pain, Diarrhea, Nausea, Vomiting Genitourinary: denies: Discharge, Dysuria, Frequency Musculoskeletal: denies: Back Pain, Joint Swelling, Muscle Pain Integumentary: denies: Bruising, Rash Neurological: denies: Change in LOC, Change in Speech, Confusion, Incoordination , Numbness Endocrine: denies: Excessive Sweating, Intolerance to Cold Hematology/Lymphatic: denies: Easily Bruised, Excessive Bleeding Psychiatric: denies: Anxiety, Depression Physical Examination Vital Signs: Vital Signs Temperature 98.2 F 03/03/19 13:04 Pulse Rate 89 03/03/19 13:04 Respiratory Rate 18 03/03/19 13:04 Blood Pressure 129/90 03/03/19 13:04 O2 Sat by Pulse Oximetry (%) 97 03/03/19 13:04 Constitutional: Yes: No Distress, Calm Eyes: Yes: Conjunctiva Clear, EOM Intact, PERRL HENT: Yes: Normocephalic. No: Epistaxis, Pharyngeal Erythema, Rhinnorhea, Thrush Neck: Yes: Trachea Midline. No: Lymphadenopathy Cardiovascular: Yes: Regular Rate and Rhythm, S1, S2 Respiratory: Yes: Regular, CTA Bilaterally. No: Rales Gastrointestinal: Yes: Normal Bowel Sounds, Soft. No: Tenderness Renal/: No: CVA Tenderness - Left, CVA Tenderness - Right Musculoskeletal: No: Back Pain, Joint Stiffness, Joint Swelling Extremities: No: Cold, Cool Edema: No Neurological: Yes: Alert, Oriented, Cran Nerves II-XII Intact Psychiatric: Yes: Alert, Oriented Labs: CBC, BMP 03/03/19 13:00 03/03/19 13:00 Imaging - Results Chest X-ray: Report Reviewed Cat Scan: Report Reviewed Problem List - Problems (1) HIV (human immunodeficiency virus infection) Code(s): B20 - HUMAN IMMUNODEFICIENCY VIRUS [HIV] DISEASE (2) Syncope and collapse Code(s): R55 - SYNCOPE AND COLLAPSE Assessment/Plan Observation on [employer] [facility] Cardio consult AM labs
--- NOTE | 2019-03-03 16:58 | EKG ---
Test Reason : Blood Pressure : / mmHG Vent. Rate : 071 BPM Atrial Rate : 071 BPM P-R Int : 142 ms QRS Dur : 088 ms QT Int : 372 ms P-R-T Axes : 030 010 033 degrees QTc Int : 404 ms NORMAL SINUS RHYTHM MINIMAL VOLTAGE CRITERIA FOR LVH, MAY BE NORMAL VARIANT BORDERLINE ECG WHEN COMPARED WITH ECG OF 11-NOV-2018 03:42, NO SIGNIFICANT CHANGE WAS FOUND Confirmed by MD Felix, Mychal ([id number]) on 03/03/2019 4:58:02 PM Referred By: Confirmed By:Mychal Washington MD
[2019-03-03 20:16] VITALS: BMI 36.6
[2019-03-04 07:51] LABS: HEMATOCRIT 43.3 % (35.4-49); HEMOGLOBIN 14.5 GM/dL (11.7-16.9); MCH 29.6 pg (25.7-33.7); MCHC 33.4 g/dl (32.0-35.9); MEAN CELL VOLUME 88.4 fl (80-96); MEAN PLT VOLUME 8.7 fl (7.5-11.1); PLATELET COUNT 195 K/MM3 (134-434); RDW 13.3 % (11.9-15.9); WHITE BLOOD COUNT 8.8 K/mm3 (4.0-10.0)
[2019-03-04] MEDS ORDERED: ATAZANAVIR SO4 150 MG CAPSULE PO SCH (08:00)
[2019-03-04 09:09] LABS: ANION GAP 6 MMOL/L (8-16); BLOOD UREA NITROGEN 19.9 mg/dL (7-18); CALCIUM 8.1 mg/dL (8.5-10.1); CHLORIDE 106 mmol/L (98-107); CO2 29 mmol/L (21-32); GLUCOSE,RANDOM 104 mg/dL (74-106); POTASSIUM 3.8 mmol/L (3.5-5.1); SODIUM 141 mmol/L (136-145)
[2019-03-04] MEDS ORDERED: ABACAVIR SULFATE 300 MG TABLET PO SCH (10:00)
[2019-03-04] MEDS ORDERED: RITONAVIR 100 MG TABLET PO SCH (10:00)
[2019-03-04] MEDS ORDERED: lamiVUDine 150 MG TABLET PO SCH (10:00)
[2019-03-04] MEDS ORDERED: PATIENT'S OWN MEDICATION (NON-FORMULARY) (Abacavir Sulfate/Lamivudine [Epzicom -] 1 TAB) PO SCH (10:00)
[2019-03-04 10:49] VITALS: BP 132/80; PULSE 76; TEMP 97.8
--- NOTE | 2019-03-04 11:30 | CON.CARD ---
Consult Consult Specialty:: Cardiology Referred by:: Jeremy Weller MD Reason for Consultation:: Syncope - History of Present Illness Chief Complaint: Syncope History of Present Illness: 48 yo HIV (VL=0, CD4 780) presented with witnessed syncope and closed head trauma while laughing, preceded by prodromal sxs of light-headedness and blurry vision, reports previous episodes of dizziness episode associated with laughing , no syncope. He denies chest pain, dyspnea, palpitations, orthopnea, PND, LE edema, diaphoresis, flushing, nausea or emesis, currently asymptomatic and denies recurrence, no events on telemetry, HCT negative. - History Source History Provided By: Patient Limitations to Obtaining History: No Limitations - Past Medical History Infectious Disease: Yes: HIV - Alcohol/Substance Use Hx Alcohol Use: No - Smoking History Smoking history: Never smoked Have you smoked in the past 12 months: No Aproximately how many cigarettes per day: 0 Home Medications - Allergies Allergies/Adverse Reactions: Allergies Allergy/AdvReac Type Severity Reaction Status Date / Time No Known Allergies Allergy Verified 03/03/19 15:03 - Home Medications Home Medications: Ambulatory Orders Atazanavir [Reyataz -] 300 mg PO DAILY@0800 #0 capsule 01/25/12 Abacavir Sulfate/Lamivudine [Epzicom -] 1 tab PO DAILY 11/14/12 Ritonavir [Norvir] 100 mg PO DAILY 11/14/12 Review of Systems - Review of Systems Neurological: reports: Syncope Vital Signs: Vital Signs Temperature 97.8 F 03/04/19 10:00 Pulse Rate 76 03/04/19 10:00 Respiratory Rate 18 03/04/19 11:00 Blood Pressure 132/80 03/04/19 10:00 O2 Sat by Pulse Oximetry (%) 96 03/04/19 11:00 Constitutional: Yes: No Distress, Calm Neck: Yes: Supple Respiratory: Yes: Regular, CTA Bilaterally Gastrointestinal: Yes: Normal Bowel Sounds, Soft Cardiovascular: Yes: Regular Rate and Rhythm JVD: No Carotid Bruit: No Heart Sounds: Yes: S1, S2 Edema: No - Other Data Labs, Other Data: CBC, BMP 03/04/19 05:56 03/04/19 05:56 INR, PTT INR 0.98 (0.83-1.09) 03/03/19 13:00 Troponin, BNP 03/03/19 03/04/19 03/04/19 13:00 00:25 05:56 Troponin I < 0.02 < 0.02 < 0.02 Troponin, BNP 03/03/19 03/04/19 03/04/19 13:00 00:25 05:56 Troponin I < 0.02 < 0.02 < 0.02 NSR Ejection Fraction %: LVEF > or = 40 % Imaging - Results Chest X-ray: Report Reviewed (NAD) Cat Scan: Report Reviewed (HCT-Negative) Problem List - Problems (1) HIV (human immunodeficiency virus infection) Code(s): B20 - HUMAN IMMUNODEFICIENCY VIRUS [HIV] DISEASE Qualifiers: HIV symptom status: asymptomatic Qualified Code(s): Z21 - Asymptomatic human immunodeficiency virus [HIV] infection status (2) Syncope and collapse Code(s): R55 - SYNCOPE AND COLLAPSE Assessment/Plan 1. Situational syncope 2. HIV P:1. Counselled on abortive maneuvers once prodromal symptoms are experienced 2. May be d/werner with f/u in office for further evaluation including echo, holter, tilt table testing 3. Thank you for consultative opportunity
--- NOTE | 2019-03-04 12:15 | DS ---
Physical Examination Vital Signs: Vital Signs Temperature 97.8 F 03/04/19 10:00 Pulse Rate 76 03/04/19 10:00 Respiratory Rate 18 03/04/19 11:00 Blood Pressure 132/80 03/04/19 10:00 O2 Sat by Pulse Oximetry (%) 96 03/04/19 11:00 Findings/Remarks: Pt w/o new syncope, no CP/ palpitations/ dizziness/ SOB/ motor or sensory deficit in arms or legs or face/ neck pain or stiffness. Constitutional: Yes: No Distress, Calm Cardiovascular: Yes: Regular Rate and Rhythm, S1, S2 Respiratory: Yes: Regular, CTA Bilaterally. No: Rales Gastrointestinal: Yes: Normal Bowel Sounds, Soft. No: Tenderness Edema: No Neurological: Yes: Alert, Oriented, Other (motor and sensory examination is symmetric in UE/ LE/ face. coordination is normal) Labs: CBC, BMP 03/04/19 05:56 03/04/19 05:56 Discharge Summary Reason For Visit: SYNCOPE AND COLLAPSE, INJURY OF HEAD Current Active Problems HIV (human immunodeficiency virus infection) (Acute) Syncope and collapse (Acute) Procedures: Principal: Head CT scan. Neck CT scan. CXR Hospital Course: Pt came to ER after passing out while laughing. Pt hit his head during syncope, Head and Neck CT scan were negative for acute events, neurologic examination remained normal. Pt was observed on Telemetry, no cardiac events noticed; pt was seen by cardio (Dr. Duque) and cleared for DC with office f/u. Condition: Stable - Instructions Diet, Activity, Other Instructions: Regular Referrals: Roge Duque MD [Staff Physician] - (in 1-2 weeks) Jeremy Weller MD [Primary Care Provider] - (in 1-3 days) Disposition: HOME - Home Medications Comprehensive Discharge Medication List: Ambulatory Orders Atazanavir [Reyataz -] 300 mg PO DAILY@0800 #0 capsule 01/25/12 Abacavir Sulfate/Lamivudine [Epzicom -] 1 tab PO DAILY 11/14/12 Ritonavir [Norvir] 100 mg PO DAILY 11/14/12
== END 2019-03-04 13:41 | disposition home or self-care (01) ==
LOC: JER 12:58 → JERBED 15:53 → J4W 18:49
PROVIDERS: ADMIT Specialist; ATTEND Specialist
DX: R55 Syncope and collapse (principal); S09.8XXA Other specified injuries of head, initial encounter; W19.XXXA Unspecified fall, initial encounter; Y93.89 Activity, other specified; Y92.59 Other trade areas as the place of occurrence of the external cause; Y99.0 Civilian activity done for income or pay; Z21 Asymptomatic human immunodeficiency virus [HIV] infection status
CPT/HCPCS: 36415; 70450-TC; 70486-TC; 71046-TC-FY; 72125-TC; 80048; 80053; 81003; 82550; 82553; 83735; 84484; 85025; 85027; 85610; 93005; 93010; 99285-25; G0378; J0131; J7030

== ENCOUNTER 2019-07-01 19:08 | Emergency (ER) | payer BC ==
[2019-07-01 19:12] VITALS: BP 109/84; PULSE 92; TEMP 98.1; BMI 37.8
[2019-07-01] MEDS ORDERED: KETOROLAC TROMETHAMINE 30 MG/1 ML VIAL IM ONE (19:43)
--- NOTE | 2019-07-01 19:54 | PDOC ---
History of Present Illness - General Chief Complaint: Pain Stated Complaint: RIGHT ARM PAIN Time Seen by Provider: 07/01/19 19:13 History Source: Patient Exam Limitations: No Limitations - History of Present Illness Initial Comments: 07/01/19 19:48 HISTORY OF PRESENT ILLNESS: This is a 48-year-old male with past medical history of HIV positive who presents to the emergency department for evaluation of atraumatic right shoulder pain radiating to his right elbow and wrist. Patient reports the pain started yesterday but is unable to identify any causative factors. Patient reports his pain worsens with abduction of the shoulder. Rates the pain 7/10 and describes it as a sharp pain without radiation or shooting sensation. Patient denies any fevers, chills, weakness. No recent travel or sick contacts. PAST MEDICAL HISTORY: See HPI SURGICAL HISTORY: Denies ALLERGIES: No known drug allergies REVIEW OF SYSTEMS General/Constitutional: Denies fever or chills. Denies weakness, weight change. HEENT: Denies change in vision. Denies ear pain or discharge. Denies sore throat. Cardiovascular: Denies chest pain or shortness of breath. Respiratory: Denies cough, wheezing, or hemoptysis. Gastrointestinal: Denies nausea, vomiting, diarrhea or constipation. Denies rectal bleeding. Genitourinary: Denies dysuria, frequency, or change in urination. Musculoskeletal: see HPI Skin and breasts: Denies rash or easy bruising. Neurologic: Denies headache, vertigo, loss of consciousness, or loss of sensation. Psychiatric: Denies depression or anxiety. Endocrine: Denies increased thirst. Denies abnormal weight change. Hematologic/Lymphatic: Denies anemia, easy bleeding, or history of blood clots. Allergic/Immunologic: Denies hives or skin allergy. Denies latex allergy. PHYSICAL EXAM General Appearance: Well-appearing, appropriately dressed. No apparent distress , no intoxication. HEENT: EOMI, PERRLA, normal ENT inspection, normal voice, TMs normal, pharynx normal. No conjunctival pallor. No photophobia, scleral icterus. Neck: Supple. Trachea midline. No tenderness, rigidity, carotid bruit, stridor , lymphadenopathy, or thyromegaly. Respiratory/Chest: Lungs CTAB. No shortness of breath, chest tenderness, respiratory distress, accessory muscle use. No crackles, rales, rhonchi, stridor , wheezing, dullness Cardiovascular: RRR. S1, S2. No JVD, murmur, bradycardia, tachycardia. Vascular Pulses: Dorsalis-Pedis (R): 2+, Dorsalis-Pedis (L): 2+ Gastrointestinal/Abdominal: Normal bowel sounds. Abdomen soft, non-distended. No tenderness or rebound tenderness. No organomegaly, pulsatile mass, guarding, hernia, hepatomegaly, splenomegaly. Lymphatic: No adenopathy, tenderness. Musculoskeletal/Extremities: Normal inspection. Normal capillary refill. Pelvis Stable. No CVA tenderness. No tenderness to extremities, pedal edema, swelling, erythema or deformity. No bony deformity to f the clavicles, right scapula, right humerus right radius or ulna., Decreased range of motion present with abduction of the shoulder. Full range of motion of right elbow and right wrist including flexion, extension, pronation and supination. Integumentary: Appropriate color, dry, warm. No cyanosis, erythema, jaundice or rash Neurologic: gi technician II-XII intact. Fully oriented, alert. Appropriate mood/affect. Motor strength 5/5. No appreciable EOM palsy, facial droop or sensory deficit. Past History - Past Medical History Allergies/Adverse Reactions: Allergies Allergy/AdvReac Type Severity Reaction Status Date / Time No Known Allergies Allergy Verified 07/01/19 19:12 Home Medications: Ambulatory Orders Atazanavir [Reyataz -] 300 mg PO DAILY@0800 #0 capsule 01/25/12 Abacavir Sulfate/Lamivudine [Epzicom -] 1 tab PO DAILY 11/14/12 Ritonavir [Norvir] 100 mg PO DAILY 11/14/12 Anemia: No Asthma: No Cancer: No Cardiac Disorders: No CVA: No COPD: No CHF: No Dementia: No Diabetes: No GI Disorders: No Disorders: No HTN: No Hypercholesterolemia: No Liver Disease: No Seizures: No Thyroid Disease: No - Surgical History Abdominal Surgery: No Appendectomy: No Cardiac Surgery: No Cholecystectomy: No Lung Surgery: No Neurologic Surgery: No Orthopedic Surgery: No - Immunization History Immunization Up to Date: Yes - Psycho Social/Smoking Cessation Hx Smoking Status: No Smoking History: Never smoked Have you smoked in the past 12 months: No Number of Cigarettes Smoked Daily: 0 Hx Alcohol Use: No Drug/Substance Use Hx: No Substance Use Type: None Hx Substance Use Treatment: No *Physical Exam - Vital Signs Last Vital Signs Temp Pulse Resp BP Pulse Ox 98.1 F 92 H 18 109/84 99 07/01/19 19:10 07/01/19 19:10 07/01/19 19:10 07/01/19 19:10 07/01/19 19:10 ED Treatment Course - RADIOLOGY Radiology Studies Ordered: Category Date Time Status SHOULDER-RIGHT [RAD] Stat Radiology 07/01/19 19:43 Ordered Medical Decision Making - Medical Decision Making 07/01/19 19:51 A/P: 48-year-old male with atraumatic right shoulder and right elbow pain As patient is on 3 antiretroviral medications I will get CPK to rule out's side effects from medication. Most likely musculoskeletal in nature with radiculopathy. EKG Toradol 30 mg IM now Right shoulder x-ray Reassess 07/01/19 21:10 X-ray of the shoulder is reviewed by me: No acute fractures or dislocations are present. Y view reveals no dislocation. AC joint is within normal limits. CPK 534. EKG sinus rhythm with rate of 89. Normal intervals present. Normal axis. No ischemic changes present. Patient with minimal relief of pain but reports that tolerable. Currently pain is 4/10. I will discharge patient home to follow-up with his regular doctor for continued evaluation of his pain. 07/01/19 21:10 07/01/19 21:13 Discharge - Discharge Information Problems reviewed: Yes Clinical Impression/Diagnosis: Right arm pain Condition: Stable Disposition: HOME - Admission No - Follow up/Referral Referrals: Jeremy Weller MD [Primary Care Provider] - - Patient Discharge Instructions Additional Instructions: Make an appointment with your primary doctor for reevaluation and pain management. Return to the emergency department for any new or worsening symptoms. Thank you very much for choosing us to provide your emergent health care needs. - Post Discharge Activity
[2019-07-01] MEDS ORDERED: KETOROLAC TROMETHAMINE 30 MG/1 ML VIAL ONE (20:03)
--- NOTE | 2019-07-03 14:36 | EKG ---
Test Reason : Blood Pressure : / mmHG Vent. Rate : 089 BPM Atrial Rate : 089 BPM P-R Int : 140 ms QRS Dur : 086 ms QT Int : 368 ms P-R-T Axes : 048 020 037 degrees QTc Int : 447 ms NORMAL SINUS RHYTHM MINIMAL VOLTAGE CRITERIA FOR LVH, MAY BE NORMAL VARIANT WHEN COMPARED WITH ECG OF 03-MAR-2019 13:00, NO SIGNIFICANT CHANGE WAS FOUND Confirmed by ARUNA REED MD ([id number]) on 07/03/2019 2:36:15 PM Referred By: Confirmed By:ARUNA REED MD
== END 2019-07-01 21:24 | disposition home or self-care (01) ==
LOC: JERFT 19:08
PROC: 3E0233Z Introduction of Anti-inflammatory into Muscle, Percutaneous Approach (ICD-10-PCS; principal; 2019-07-01)
DX: M79.601 Pain in right arm (principal)
CPT/HCPCS: 36415; 73030-TC-RT-FY; 82550; 82553; 93005; 93010; 99282-25

== ENCOUNTER 2021-10-28 19:41 | Emergency (ER) | payer BC ==
[2021-10-28 19:47] VITALS: BP 137/88; PULSE 98; TEMP 97.9; BMI 37.2
== END 2021-10-28 22:27 | disposition home or self-care (01) ==
LOC: JER 19:41
DX: S60.221A Contusion of right hand, initial encounter (principal); S50.02XA Contusion of left elbow, initial encounter; S16.1XXA Strain of muscle, fascia and tendon at neck level, initial encounter; W00.0XXA Fall on same level due to ice and snow, initial encounter
CPT/HCPCS: 72050-TC-FY; 73070-TC-LT-FY; 73130-TC-RT-FY; 99285-25

== ENCOUNTER 2023-10-23 18:59 | Emergency (ER) | payer BC ==
[2023-10-23 19:13] VITALS: BP 127/79; PULSE 88; RESP 17; TEMP 98.9; BMI 33.4
[2023-10-23] MEDS ORDERED: ACETAMINOPHEN 500 MG TABLET (FP) PO ONE (20:56)
[2023-10-23 20:59] LABS: BASO % 0.4 % (0-2.0); EOS % 0.9 % (0-4.5); HEMATOCRIT 46.9 % (35.4-49); HEMOGLOBIN 15.5 GM/dL (11.7-16.9); LYMPH % 27.7 % (8-40); MCH 29.8 pg (25.7-33.7); MEAN CELL VOLUME 90.3 fl (80-96); MEAN PLT VOLUME 7.7 fl (7.5-11.1); MONO % 8.8 % (3.8-10.2); NEUT % 62.2 % (42.8-82.8); PLATELET COUNT 255 10^3/uL (134-434); RBC 5.19 M/mm3 (4.00-5.60); RDW 13.4 % (11.9-15.9)
[2023-10-23 21:00] LABS: PH,URINE 5.5 (5.0-8.0); URINE APPEARANCE CLEAR; URINE BILIRUBIN NEGATIVE (NEGATIVE); URINE COLOR YELLOW; URINE GLUCOSE (UA) NEGATIVE (NEGATIVE); URINE KETONE NEGATIVE (NEGATIVE); URINE LEUK ESTERASE NEGATIVE (NEGATIVE); URINE NITRITE NEGATIVE (NEGATIVE); URINE PROTEIN NEGATIVE (NEGATIVE)
[2023-10-23 21:17] LABS: ACTIVATED PTT 30.7 SECONDS (25.2-36.5); INR 0.97 (0.83-1.09); PROTHROMBIN TIME (PATIENT) 11.2 SEC (9.7-13.0)
[2023-10-23 21:24] LABS: POTASSIUM 4.1 mmol/L (3.5-5.1)
[2023-10-23 21:27] LABS: ALBUMIN 4.2 g/dl (3.4-5.0); BLOOD UREA NITROGEN 18.9 mg/dL (7-18)
[2023-10-23 21:30] LABS: CREATININE 1.1 mg/dL (0.55-1.3)
[2023-10-23 21:31] LABS: BILIRUBIN,TOTAL 3.9 mg/dL (0.2-1)
[2023-10-23] MEDS ORDERED: ACETAMINOPHEN 500 MG TABLET (FP) ONE (21:31)
[2023-10-23 21:32] LABS: TOT PROT 7.8 g/dl (6.4-8.2)
[2023-10-23] MEDS ORDERED: KETOROLAC TROMETHAMINE 30 MG/1 ML VIAL IM ONE (22:35)
[2023-10-23] MEDS ORDERED: KETOROLAC TROMETHAMINE 30 MG/1 ML VIAL ONE (22:35)
== END 2023-10-23 22:32 | disposition home or self-care (01) ==
LOC: JERFT 18:59
DX: M79.604 Pain in right leg (principal); M71.21 Synovial cyst of popliteal space [Baker], right knee
CPT/HCPCS: 36415; 80053; 81003; 85025; 85610; 85730; 93971-TC; 99284-25